=== PATIENT | female | born 1940 | race Caucasian/White ===

== ENCOUNTER 2021-10-06 07:39 | Outpatient (CLI) | payer OTHER | END 2021-10-06 07:40 | disposition home or self-care (01) | LOC: NUCLEAR 07:39 | PROVIDERS: ATTEND Internal Medicine Hematology & Oncology | DX: C50.611 Malignant neoplasm of axillary tail of right female breast (principal) | CPT/HCPCS: 78815; A9552 ==

== ENCOUNTER → 2022-10-04 | Outpatient (CLI) | payer OTHER | END | disposition home or self-care (01) | LOC: NUCLEAR 10-02 09:00 | PROVIDERS: ATTEND Internal Medicine Hematology & Oncology | DX: C50.911 Malignant neoplasm of unspecified site of right female breast (principal) | CPT/HCPCS: 78816; A9552 ==

== ENCOUNTER 2024-05-24 08:03 | Outpatient (CLI) | payer OTHER | END 2024-05-24 08:49 | disposition home or self-care (01) | LOC: RAD 08:03 | DX: S52.572A Other intraarticular fracture of lower end of left radius, initial encounter for closed fracture (principal) ==

== ENCOUNTER 2024-08-09 08:10 | Outpatient (CLI) | payer OTHER | END 2024-08-09 08:17 | disposition home or self-care (01) | LOC: RAD 08:10 | DX: M25.532 Pain in left wrist (principal); M25.531 Pain in right wrist ==

== ENCOUNTER 2024-09-03 07:09 | Outpatient (CLI) | payer OTHER | END 2024-09-03 07:20 | disposition home or self-care (01) | LOC: NUCLEAR 07:09 | PROVIDERS: ATTEND Internal Medicine Hematology & Oncology | DX: C50.911 Malignant neoplasm of unspecified site of right female breast (principal) | CPT/HCPCS: 78815; A9552 ==

== ENCOUNTER 2025-08-26 07:17 | Outpatient (CLI) | payer OTHER | END 2025-08-26 07:19 | disposition home or self-care (01) | LOC: NUCLEAR 07:17 | PROVIDERS: ATTEND Internal Medicine Hematology & Oncology | DX: C50.911 Malignant neoplasm of unspecified site of right female breast (principal) | CPT/HCPCS: 78815; A9552 ==